=== PATIENT | male | born 1955 | race Caucasian/White ===

== ENCOUNTER 2019-10-28 21:38 | Emergency (ER) | payer MEDICAID, OTHER ==
[~2019-10-28] VITALS: Ht 175 cm; Wt 63.0 kg
[2019-10-28] MEDS ORDERED: cefTRIAXone 1,000 MG/2.86 ml vial (IM ONLY) IM STA (22:31)
[2019-10-28] MEDS ORDERED: AMOX-358 PO (22:37)
--- NOTE | 2019-10-28 22:38 | ED Integumentary General ---
General Chief Complaint: Bite-Animal/Human/Insect Stated Complaint: ANIMAL BITE Nursing Triage Note: PT PRESENTS WITH A CAT BITE THAT OCCURRED AROUND 1800 TONIGHT. BITE IS TO LEFT HAND. PT STATES IT WAS HIS OWN CAT AND IS UNSURE IF THE IMMUNIZATIONS ARE UP TO DATE OR NOT History of Present Illness Date Seen by Provider: Oct 28, 2019 Time Seen by Provider: 21:30 Initial Comments cat bite to left hand multiple punctures, known animal, provoked, shots current. pt has ms Timing/Duration: this evening Severity: mild Location: hands Associated Symptoms: No fever, No rash; swelling/mass/lumps Allergies and Home Medications Allergies Coded Allergies: Iodinated Contrast Media (Verified Allergy, Unknown, 10/28/19) Patient Home Medication List Home Medication List Reviewed: Yes Review of Systems Review of Systems Constitutional: No chills, No fever EENTM: see HPI Respiratory: no symptoms reported Cardiovascular: no symptoms reported Musculoskeletal: joint pain, joint swelling Skin: see HPI, lesions Past Qswhypr-Qmemsd-Qppigs Hx Past Med/Social Hx: Reviewed Nursing Past Med/Soc Hx Patient Social History Alcohol Use: Denies Use Recreational Drug Use: No Smoking Status: Never a Smoker 2nd Hand Smoke Exposure: No Recent Foreign Travel: No Contact w/Someone Who Travel: No Recent Infectious Disease Expo: No Recent Hopitalizations: No Physical Abuse: No Sexual Abuse: No Mistreated: No Past Medical History Surgeries: No Respiratory: No Cardiac: Yes Hypertension Neurological: Yes Multiple Sclerosis Genitourinary: No Gastrointestinal: No Musculoskeletal: No Endocrine: No HEENT: No Cancer: No Psychosocial: No Integumentary: No Blood Disorders: No Physical Exam Vital Signs Vital Signs - First Documented 10/28/19 21:48 Temp 36.4 Pulse 83 Resp 18 B/P (MAP) 205/90 (128) Pulse Ox 96 O2 Delivery Room Air Capillary Refill : Less Than 3 Seconds General Appearance: WD/WN, no apparent distress Extremities: other (tender swollen minimally erythematous left hand multiple punctures with tendeerness. some tenderness extending up the left wrist with no swelling or erythema. ) Neurologic/Psychiatric: no motor/sensory deficits, alert, normal mood/affect, oriented x 3 Skin: normal color, warm/dry Skin Problem Character: lesion, tenderness Lymphatic: no adenopathy Progress/Results/Core Measures Results/Orders My Orders Orders - MARC JOSEPH JR, MD Ceftriaxone For Im Use (Rocephin For Im (10/28/19 22:31) Lidocaine 1% Inj 20 Ml (Xylocaine 1% Inj (10/28/19 22:45) Vital Signs/I&O 10/28/19 21:48 Temp 36.4 Pulse 83 Resp 18 B/P (MAP) 205/90 (128) Pulse Ox 96 O2 Delivery Room Air Blood Pressure Mean: 128 Departure Impression Primary Impression: Cat bite Qualified Codes: W55.01XA - Bitten by cat, initial encounter Disposition: HOME, SELF-CARE Condition: Stable Departure-Patient Inst. Referrals: NO,LOCAL PHYSICIAN (PCP/Family) Primary Care Physician Patient Instructions: Animal Bites (DC) Scripts Amoxicillin/Potassium Clav (Augmentin 875-125 Tablet) 1 Each Tablet 1 EACH PO BID, #14 TAB 0 Refills Prov: MARC JOSEPH JR, MD 10/28/19 MARC JOSEPH JR, MD Oct 28, 2019 22:38
[2019-10-28] MEDS ORDERED: LIDOCAINE 1% INJ 20 ML 20 ML VIAL INJ ONE (22:45)
[2019-10-28 22:46] VITALS: BP 182/94
== END 2019-10-28 22:49 | disposition home or self-care (01) ==
LOC: ER FS 21:42
DX: S61.452A Open bite of left hand, initial encounter (principal); I10 Essential (primary) hypertension; G35 Multiple sclerosis; Z91.041 Radiographic dye allergy status; W55.01XA Bitten by cat, initial encounter
CPT/HCPCS: 96372

== ENCOUNTER 2022-04-25 23:48 | Emergency (ER) | payer MEDICAID ==
[~2022-04-25 23:48] MED LIST: AMOX-358 PO
[2022-04-26 00:06] LABS: BILIRUBIN,URINE NEGATIVE (NEGATIVE); GLUCOSE, URINE (UA) NEGATIVE (NEGATIVE); KETONES,URINE TRACE (NEGATIVE); LEUKOCYTE ESTERASE ,URINE 2+ (NEGATIVE); NITRITE,URINE POSITIVE (NEGATIVE); PROTEIN,URINE 2+ (NEGATIVE)
[2022-04-26] MEDS ORDERED: ONDANSETRON 4 MG (ZOFRAN) ORAL DISSOLVE TAB PO STA (00:06)
[2022-04-26 00:07] LABS: CLARITY,URINE CLOUDY; COLOR,URINE DARK YELLOW
[2022-04-26 00:09] LABS: WBC,URINE TNTC /HPF
[2022-04-26] MEDS ORDERED: CEFD300C3 PO (00:10)
[2022-04-26] MEDS ORDERED: ONDA4TAB11 PO (00:10)
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
[2022-04-26] MEDS ORDERED: CEFDINIR 300 MG (OMNICEF) CAP PO ONE (00:15)
[2022-04-26 00:21] VITALS: BP 179/104
== END 2022-04-26 00:19 | disposition home or self-care (01) ==
LOC: EDUNIT# 23:48 → ER FS 23:52
DX: N30.90 Cystitis, unspecified without hematuria (principal)
CPT/HCPCS: 81000; 87077; 87088; 87186; 99283

== ENCOUNTER 2023-07-26 19:29 | Emergency (ER) | payer MEDICAID ==
[~2023-07-26] VITALS: Ht 175.2 cm; Wt 64.0 kg
[~2023-07-26 19:29] MED LIST changes: +CEFD300C3 PO; +ONDA4TAB11 PO
[2023-07-26] MEDS ORDERED: GABAPENTIN 100 MG CAPSULE PO STA ×2 (19:44→20:07)
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
[2023-07-26 20:03] LABS: BILIRUBIN,URINE NEGATIVE (NEGATIVE); CLARITY,URINE CLOUDY; COLOR,URINE YELLOW; GLUCOSE, URINE (UA) NEGATIVE (NEGATIVE); KETONES,URINE NEGATIVE (NEGATIVE); LEUKOCYTE ESTERASE ,URINE 3+ (NEGATIVE); NITRITE,URINE POSITIVE (NEGATIVE); PH,URINE 6.5 (5-9); PROTEIN,URINE TRACE (NEGATIVE)
[2023-07-26 20:07] LABS: BACTERIA,URINE LARGE /HPF; WBC,URINE >100 /HPF
[2023-07-26] MEDS ORDERED: LEVO-55 PO (20:18)
[2023-07-26 20:30] VITALS: BP 151/75
== END 2023-07-26 20:30 | disposition home or self-care (01) ==
LOC: EDUNIT# 19:29 → ER FS 19:32
DX: T83.511A Infection and inflammatory reaction due to indwelling urethral catheter, initial encounter (principal); G62.9 Polyneuropathy, unspecified; Y82.9 Unspecified medical devices associated with adverse incidents
CPT/HCPCS: 81000; 87088; 99283

== ENCOUNTER 2023-09-25 18:17 | Emergency (ER) | payer MEDICAID ==
[~2023-09-25] VITALS: Ht 175.3 cm; Wt 59.0 kg
[~2023-09-25 18:17] MED LIST changes: +LEVO-55 PO
[2023-09-25 18:33] VITALS: BP 181/99
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
[2023-09-25] MEDS ORDERED: Sulfamethoxazole/Trimethoprim DS TABLET PO STA (18:55)
[2023-09-25] MEDS ORDERED: LIDOCAINE 1% INJ 20 ML VIAL INJ ONE (19:00)
[2023-09-25] MEDS ORDERED: cefTRIAXone 1,000 MG VIAL IV/IM IM ONE (19:00)
[2023-09-25] MEDS ORDERED: FURO20TA4 PO (19:04)
[2023-09-25] MEDS ORDERED: SULF1TAB38 PO (19:04)
[2023-09-25 19:28] LABS: BILIRUBIN,URINE NEGATIVE (NEGATIVE); COLOR,URINE YELLOW; GLUCOSE, URINE (UA) NEGATIVE (NEGATIVE); KETONES,URINE NEGATIVE (NEGATIVE); LEUKOCYTE ESTERASE ,URINE 1+ (NEGATIVE); NITRITE,URINE POSITIVE (NEGATIVE); PH,URINE 7.5 (5-9); PROTEIN,URINE 2+ (NEGATIVE)
[2023-09-25 19:30] LABS: BACTERIA,URINE LARGE /HPF; CLARITY,URINE CLOUDY; WBC,URINE TNTC /HPF
== END 2023-09-25 19:22 | disposition home or self-care (01) ==
LOC: EDUNIT# 18:17 → ER FS 18:19
DX: L02.31 Cutaneous abscess of buttock (principal); L89.319 Pressure ulcer of right buttock, unspecified stage; L03.317 Cellulitis of buttock
CPT/HCPCS: 81000; 87077; 87088; 87186; 96372